=== PATIENT | female | born 1980 | race Caucasian/White ===

== ENCOUNTER 2017-05-30 22:32 | Emergency (ER) | payer OTHER ==
[2017-05-30] MEDS ORDERED: PHENAZOPYRIDINE HCL 200 MG TAB ONE (23:26)
--- NOTE | 2017-05-30 23:27 | EDPHY ---
H & P Time Seen by Provider: 05/30/17 23:05 HPI/ROS: CHIEF COMPLAINT: Dysuria History by patient HISTORY OF PRESENT ILLNESS: 29-year-old woman with a history of kidney stones as well as recent IUD placement presents complaining of dysuria which began today while she was at work. Patient states that when she gets kidney stones this is often her only symptoms that she does not get flank pain or nausea or vomiting. Typically she will have the feeling of dysuria and then she will urinate and passed the stone. This feeling of dysuria has persisted but she has not yet passed a stone. She has also had some mild vulvar itching but denies any vaginal discharge. She had her IUD replaced recently. Her last menstrual period was last week. She denies any abdominal pain, nausea vomiting , back pain or fever. She is and has no concerns about sexually transmitted diseases. REVIEW OF SYSTEMS: As in HPI, and all other systems reviewed and are negative Smoking Status: Never smoked Physical Exam: General Appearance: Alert, comfortable, well appearing. Head: normocephalic, atraumatic Eyes: Pupils equal and round, reactive to light, no pallor or injection. Mouth: Mucous membranes moist. Gastrointestinal: Abdomen is soft and nontender, no masses, bowel sounds normal. Back: No CVA tenderness, no bony tenderness Neurological: Awake, alert and oriented x 3, no pronator drift, normal gait, no pronator drift Skin: Warm and dry, no rashes. Musculoskeletal: No deformities or tenderness. Extremities: full range of motion, no edema, DP2+ bilat Psychiatric: Patient has normal affect, there is no agitation. Constitutional: Initial Vital Signs Temperature (C) 36.9 C 05/30/17 22:42 Heart Rate 74 05/30/17 22:42 Respiratory Rate 18 05/30/17 22:42 Blood Pressure 133/88 H 05/30/17 22:42 O2 Sat (%) 98 05/30/17 22:42 O2 Delivery Mode Room Air Allergies/Adverse Reactions: ampicillin sodium [From Unasyn] Allergy (Verified 05/30/17 22:46) Cephalosporins Allergy (Verified 05/30/17 22:46) sulbactam sodium [From Unasyn] Allergy (Verified 05/30/17 22:46) nylon Allergy (Uncoded 05/30/17 22:46) Home Medications: Medication Instructions Recorded NK [No Known Home Meds] 06/06/15 MDM/Departure - MDM ED Course/Re-evaluation: 29-year-old woman with history of kidney stones presents with dysuria. Urinalysis shows no evidence of blood or infection. I was concerned that the patient's symptoms may be due to vaginitis and wanted to take vaginal swabs for bacterial vaginosis, yeast and Trichomonas however, after lengthy discussion the patient declined, stating she preferred to see her personal clinical data coordinator tomorrow for these kinds of tests. Patient thinks this still could be her typical kidney stone symptoms. Will go ahead and give her a trial of Pyridium to see if this helps with her symptoms of dysuria, but again I have emphasized that she needs to see the clinical data coordinator as soon as possible if her symptoms persist. There is no evidence of systemic toxicity and I think is a reasonable plan of action. Patient understands and is agreeable to this plan. - Depart Disposition: Home, Routine, Self-Care Clinical Impression: Dysuria Condition: Good Instructions: Dysuria (ED) Additional Instructions: You were seen by Dr. Racquel Lemon today. There is no evidence of urinary tract infection on urinalysis tonight. You may try a trial of Pyridium for the dysuria symptoms, this may be year typical kidney stone symptoms, but I recommend immediate follow up with your clinical data coordinator to evaluate for bacterial vaginosis, yeast infection or other causes of the dysuria. Return for any worsening or new concerns.
[2017-05-30] MEDS ORDERED: PHENAZOPYRIDINE HCL 200 MG TAB PO ONE (23:31)
[2017-05-30 23:36] VITALS: BP 128/72
== END 2017-05-30 23:39 | disposition home or self-care (01) ==
LOC: CED 22:32
DX: R30.0 Dysuria (principal)
CPT/HCPCS: 81003-PO

== ENCOUNTER → 2018-07-06 | Outpatient (CLI) | payer OTHER ==
[~2018-07-06] MED LIST: IOPAMIDOL (ISOVUE-300) 100 ML BTL ONE
== END ==
LOC: CIMAGING 11:29
PROVIDERS: ATTEND Internal Medicine
DX: R10.12 Left upper quadrant pain (principal); N20.0 Calculus of kidney; Z87.442 Personal history of urinary calculi; Z97.5 Presence of (intrauterine) contraceptive device
CPT/HCPCS: 74177-PO; Q9967